=== PATIENT | female | born 1935 | race American Indian/Alaskan Native ===

== ENCOUNTER 2019-03-10 07:11 | Day surgery (SDC) | payer MEDICARE ==
[2019-03-09 16:40] VITALS: BMI 43.7
[2019-03-10 08:55] LABS: BASO # 0.03 K/mm3 (0.0-2.0); BASO % 0.5 % (0.0-3.0); EOS # 0.1 (0.0-0.7); EOS % 1.6 % (1.5-5.0); HEMOGLOBIN 10.9 g/dL (12.0-16.0); LYMPH # 1.8 (1.2-3.4); LYMPH % 31.5 % (22.0-35.0); MEAN CORPUSCULAR HGB CONC 30.5 g/dl (31.0-37.0); MEAN PLATELET VOLUME 9.9 fl (7.0-11.0); MONO # 0.4 (0.1-0.6); MONO % 7.2 % (1.0-6.0); RBC 4.2 10^6/uL (3.5-6.1); RED CELL DISTRIBUTION WIDTH 13.7 % (11.5-14.5); WHITE BLOOD COUNT 5.6 10^3/uL (4.5-11.0)
[2019-03-10] MEDS ORDERED: Propofol 10 mg/ml Inj (20 ML) ONE (09:24)
[2019-03-10] MEDS ORDERED: Etomidate 20 mg/10ml Inj IV ONE (09:29)
[2019-03-10] MEDS ORDERED: Sodium Chloride 0.9% 1,000 ML IV SCH (09:45)
[2019-03-10 09:53] VITALS: TEMP 98
[2019-03-10 11:18] VITALS: BP 148/51; PULSE 63; RESP 18; O2SAT 98
== END 2019-03-10 11:13 | disposition home or self-care (01) ==
LOC: ENDO 07:11
PROVIDERS: ATTEND Internal Medicine Gastroenterology
DX: K25.9 Gastric ulcer, unspecified as acute or chronic, without hemorrhage or perforation (principal); K44.9 Diaphragmatic hernia without obstruction or gangrene; K29.50 Unspecified chronic gastritis without bleeding; R10.13 Epigastric pain; R10.11 Right upper quadrant pain; D50.9 Iron deficiency anemia, unspecified
CPT/HCPCS: 36415; 43239; 85025; 88305; 88342; J2001; J2704; J7030; J7040